=== PATIENT | male | born 1990 | race African-American/Black ===

== ENCOUNTER 2020-05-23 17:30 | Emergency (ER) | payer OTHER, SELFPAY ==
[~2020-05-23] VITALS: Ht 188 cm; Wt 128.7 kg
[2020-05-23] MEDS ORDERED: LISI10TA4 PO (17:44)
--- NOTE | 2020-05-23 19:28 | REPVR ---
PROCEDURE INFORMATION: Exam: US Duplex Left Lower Extremity Veins, Limited Exam date and time: 05/23/2020 7:00 PM Age: 29 years old Clinical indication: Pain; Leg, lower; Left; Additional info: Lle swelling/pain TECHNIQUE: Imaging protocol: Real-time Duplex ultrasound of the Left Lower Extremity with 2-D baez scale, color Doppler flow and spectral waveform analysis with image documentation. Limited exam focused on the left lower extremity veins. COMPARISON: No relevant prior studies available. FINDINGS: Left deep veins: Unremarkable. The common femoral, femoral, proximal profunda femoral and popliteal veins are patent without thrombus. Normal Doppler waveforms. Normal compressibility and/or augmentation response. Left superficial veins: Unremarkable. Saphenofemoral junction is patent without thrombus. Soft tissues: Unremarkable. IMPRESSION: No evidence of deep vein thrombosis. Electronically signed by: Liberty Ferreira On 05/23/2020 19:28:03 PM
[2020-05-23 19:40] VITALS: BP 164/93
== END 2020-05-23 19:52 | disposition home or self-care (01) ==
LOC: M ED 17:30
DX: M79.662 Pain in left lower leg (principal); I10 Essential (primary) hypertension; J45.909 Unspecified asthma, uncomplicated; F17.200 Nicotine dependence, unspecified, uncomplicated; Z88.0 Allergy status to penicillin; Z88.1 Allergy status to other antibiotic agents; Z88.2 Allergy status to sulfonamides